=== PATIENT | female | born 1970 | race Caucasian/White ===

== ENCOUNTER → 2021-02-10 | Outpatient (REF) ==
--- NOTE | 2021-02-10 12:31 | REP ---
INDICATION: [facility]- SPINAL STENOSIS. COMPARISON: None. TECHNIQUE: Three views of the lumbar spine are provided. FINDINGS: There is a dorsal column stimulator lead which enters the L1-2 inter spinous space and is seen ascending along the dorsal aspect of the spinal canal into the lower thoracic spine. Lumbar vertebral body heights are preserved. Lumbar spine alignment is normal. Pedicles and posterior elements are intact. There is degenerative disc narrowing and spur formation and sclerosis at L5-S1. Lesser degenerative disc changes are noted at L4-5, L3-4 and L2-3. Psoas margins are symmetric. Sacrum and SI joints are intact. There is mild facet hypertrophy at L4-5 and L5-S1 bilaterally IMPRESSION: Degenerative lumbar spine cysts spondylosis changes as noted above. Degenerative disc disease is most pronounced at L4-5. Dorsal column stimulator seen in the lower thoracic canal. <Electronically signed by Adiel London > 02/10/21 [id number]
== END ==
LOC: M PLAIMG 11:13
PROVIDERS: ATTEND Internal Medicine
DX: M48.00 Spinal stenosis, site unspecified (principal)